=== PATIENT | male | born 1980 | race Two or more races ===

== ENCOUNTER 2024-10-03 23:04 | Emergency (ER) | payer OTHER ==
[~2024-10-03] VITALS: Ht 177.8 cm; Wt 163.3 kg
[2024-10-04] MEDS ORDERED: ATORVASTATIN CA10 MG (00:11)
[2024-10-04] MEDS ORDERED: KETOROLAC TROMETHAMINE 60 MG VIAL IM ONE ×2 (03:00→03:03)
[2024-10-04] MEDS ORDERED: DICLOFENAC SODI75 MG PO (03:31)
== END 2024-10-04 03:45 | disposition home or self-care (01) ==
LOC: ER 10-04 00:32
DX: G89.11 Acute pain due to trauma (principal); R07.81 Pleurodynia